=== PATIENT | male | born 1960 | race Caucasian/White ===

== ENCOUNTER 2017-03-29 14:00 | Inpatient (IN) | payer OTHER ==
--- NOTE | ~2017-03-29 | HP ---
Unit #: [id number] #: [id number] Patient: ULISES MACK [id number] [place] [address] [id number] I MR#: [id number] NAME: ULISES MACK ROOM: [facility] Age: 56 Sex: M Admission Date: 03/29/2017 : 1960 Attending Physician: Marita Cottrell M.D. Admitting Physician: Marita Cottrell M.D. Primary Care Physician: Primary Care Physician No HISTORY AND PHYSICAL HISTORY OF PRESENT ILLNESS Ulises is a 56 year old admitted to [facility] because of his abuse of alcohol. He is detoxing. PAST MEDICAL HISTORY 1. Long history of alcohol abuse. 2. Hyperlipidemia. PAST SURGICAL HISTORY Nothing reported. ALLERGIES No known drug allergies. SOCIAL HISTORY Smokes 1/2 pack per day. Drinks fifth of vodka on a daily basis. Denies illicit drug use, although UDS was positive for benzodiazepines in the emergency room. FAMILY HISTORY Medically noncontributory. REVIEW OF SYSTEMS He does not answer all questions appropriately. He does report nausea, sweats and shakes. CURRENT MEDICATIONS 1. Detox protocol. 2. Lipitor 20 mg daily. PHYSICAL EXAMINATION GENERAL: Alert, well-nourished, in no apparent distress. VITAL SIGNS: Blood pressure 132/84, heart rate 100, respirations 16, temperature 98.6. SKIN: Warm and dry without rash or lesion. HEENT: Normocephalic. TMs not viewed. Oral and nasal passages clear. Conjunctivae clear. PERRLA. EOMs intact. NECK: Supple without lymphadenopathy or thyromegaly. HEART: Regular rate and rhythm without murmur. LUNGS: Clear. ABDOMEN: Soft, nontender. : Not done. EXTREMITIES: No evidence of cyanosis, clubbing or edema. Moves all Unit #: [id number] #: [id number] Patient: ULISES MACK without focal deficit. NEUROLOGICAL: Unable to complete extended exam. He does move all extremities without focal deficit. 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 IMPRESSION Psychiatric admission. RECOMMENDATIONS PSYCHIATRIC: Per psychiatrist. MEDICAL: See no contraindication to participate in facility's activities. MEDICAL PROGNOSIS Good. MEDICAL CONDITION Stable. Dictated by... Lena Quinn P.A.-C. for Fe Alavrez/kristan TD: 03/30/2017 18:04 JOB #: [id number] HISTORY AND PHYSICAL Page 1 of 1 X Lena Quinn X HISTORY AND PHYSICAL
--- NOTE | ~2017-03-29 | PN ---
Unit #: [id number] #: [id number] Patient: ULISES HELLER [id number] [facility] [address] [place] [address] [id number] MR#: [id number] NAME: ULISES HELLER ROOM: [facility] Age: 56 Sex: M Admission Date: 03/29/2017 : 1960 Attending Physician: Marita Cottrell M.D. Admitting Physician: Marita Cottrell M.D. Primary Care Physician: Primary Care Physician Reyna KC PROGRESS NOTES DATE March 31, 2017 DISCUSSION Mr. Heller is a 56-year-old white male, who was seen today and chart was reviewed and the case was discussed with the staff. He appears to be doing somewhat better than yesterday and appears to be coming out of the detox but still has been having some persistent detox symptoms, but he has been maintaining a positive attitude about his treatment. MENTAL STATUS EXAMINATION Middle-aged white male, who was casually dressed with fair personal hygiene and appears to be in no acute distress or discomfort. He was awake and alert on interaction with intact orientation. His mood is anxious with a congruent affect. He denies any suicidal or homicidal ideations. His insight and judgment remain slightly impaired. TREATMENT PLAN 1. We will continue him on his current medications and treatment protocol, and will monitor his response to the medications, and make further adjustments as needed. 2. We will continue to followup. Dictated by... Fe Fortune/ted TD: 04/02/2017 12:02 JOB #: [id number] Unit #: [id number] #: [id number] Patient: ULISES HELLER PROGRESS NOTES Page 1 of 1 X Marita Cottrell MD PROGRESS NOTE
--- NOTE | ~2017-03-29 | PN ---
Unit #: [id number] #: [id number] Patient: ULISES HELLER [id number] [facility] [address] [place] [address] [id number] I MR#: [id number] NAME: ULISES HELLER ROOM: [facility] Age: 56 Sex: M Admission Date: 03/29/2017 : 1960 Attending Physician: Marita Cottrell M.D. Admitting Physician: Marita Cottrell M.D. Primary Care Physician: Primary Care Physician Reyna BARAHONA NOTES DATE OF SERVICE 03/30/2017 DISCUSSION Mr. Heller is a 56-year-old white male with alcohol dependence who was seen today. Chart was reviewed and case was discussed with the staff. He was lying in his bed and was seen to be unkempt, disheveled, anxious, and withdrawn in acute distress and discomfort and was shaking and was tremulous with slurred speech and appeared to be not feeling very well. Meanwhile, he has not shown any agitation or aggression. MENTAL STATUS EXAMINATION Middle-aged white male who is casually dressed with marginal personal hygiene, appears to be in slight distress or discomfort. The patient was awake and alert with impaired attention and concentration. His mood is anxious with congruent affect. His speech is slow and restricted in content. He denies any suicidal or homicidal ideations. His insight and judgment remain slightly impaired. TREATMENT PLAN 1. We will continue him on his current medications and treatment protocol. We will monitor his response to the medications and make further adjustments as needed. 2. We will continue to follow up. Dictated by... Fe Fortune/jazmin TD: 03/30/2017 11:16 JOB #: [id number] Unit #: [id number] #: [id number] Patient: ULISES HELLER PROGRESS NOTES Page 1 of 1 X Marita Cottrell MD PROGRESS NOTE
--- NOTE | ~2017-03-29 | PA ---
Unit #: [id number] #: [id number] Patient: ULISES MACK [id number] [facility] [address] [place] [address] [id number] MR#: [id number] NAME: ULISES MACK ROOM: P184 Age: 56 Sex: M Admission Date: 03/29/2017 : 1960 Date of Assessment: 03/29/2017 Attending Physician: Marita Cottrell M.D. Admitting Physician: Marita Cottrell M.D. Primary Care Physician: Primary Care Physician No PSYCHIATRIC ASSESSMENT DATE OF SERVICE 03/29/2017 IDENTIFYING DATA Mr. Mack is a 56-year-old single white male, who is a resident of [place], [place], and was transferred to us from [facility] where he was taken accompanied by his girlfriend. CHIEF COMPLAINT "My issues with alcohol." HISTORY OF PRESENT ILLNESS Mr. Mack is a 56-year-old white male with a history of alcohol dependence and mood disorder, who was taken to the hospital emergency room with a blood alcohol level of 0.025 and reports that he has been having issues with alcohol and that he woke up this morning with severe shake and could not keep his balance and last night he began to hallucinate after drinking and he drank two fifths of vodka and stated that he is not feeling well and knowing that he needed to come to the hospital to get some help and reports an extensive history of drinking and he was clean for approximately 1 year and began drinking again daily approximately 2 weeks ago and reports that the baseline of his current drinking is the mere fact that he just broke up with his girlfriend for a year and that this was a hard breakup for him and he also stated that he continues to grieve the loss of his , who in 2002 of leukemia. He reports that his son and all going through somethings that are also taking a toll and so he began drinking again as a means to self-medicate, and since then, he has been on a binge drinking episode and has been drinking two fifths of vodka on a daily basis and does report increasing depression, anxiety, irritability, restlessness, feelings of hopelessness and helplessness, but denies any current suicidal ideations, intent, or plan, and as such, recommendation for an inpatient level of care for safety and stabilization was made. The patient was stepped up to the inpatient unit. SUBSTANCE ABUSE HISTORY The patient reports a history of alcohol dependence stating that he has been drinking since he was 15 years old and currently has been drinking two-fifths of vodka a day and has been experimenting with benzodiazepine as well and did indeed test positive for benzodiazepine in the emergency room, though he reports alcohol to be his drug of choice. PAST PSYCHIATRIC HISTORY The patient has had a history of inpatient chemical dependency psychiatric Unit #: [id number] #: [id number] Patient: ULISES MACK treatment at [facility], at [facility], and various other locations. Review of the medical records indicates that currently he is not active in any treatment program and is not seeing a psychiatrist. PAST MEDICAL HISTORY Dyslipidemia and herpes. ALLERGIES No known medication allergies. PERSONAL AND SOCIAL HISTORY A 56-year-old white male, who reports that he is single and lives at home with his girlfriend and has fairly decent social support system. MENTAL STATUS EXAMINATION A middle-aged white male, who was casually dressed with a fair personal hygiene and appears to be in no acute distress or discomfort. He was awake and alert on interaction with intact orientation to time, place, and person. His mood was anxious and depressed with a congruent affect. His speech is slow and goal directed. He reports having suicidal ideations, but denies any homicidal ideations, and also denies any auditory or visual hallucinations. His insight and judgment remain significantly impaired. DIAGNOSTIC IMPRESSION Psychiatric: Alcohol dependence, moderate and acute withdrawals. Alcohol-induced mood disorder. Medical: Herpes. Stressors: Moderate psychosocial stressors. TREATMENT PLAN 1. The patient has presented with a history of substance abuse and mood disorder and has been decompensating and will need inpatient hospitalization for detoxification, safety, and stabilization. We will start him back on his home medications. We will adjust the medications and monitor response. 2. Supportive therapy was provided to the patient. 3. Safe, structured, and nourishing environment will be provided. ESTIMATED LENGTH OF STAY 5 to 7 days. ABILITY TO HELP SELF Limited. WILLINGNESS TO HELP SELF The patient appears to be willing to help self. STRENGTHS 1. Communicative. 2. Cooperative. PROBLEMS 1. Chronic dysphoric symptoms. 2. Chronic chemical dependency. 3. Poor social support system. Unit #: [id number] #: [id number] Patient: ULISES MACK DISCHARGE CRITERIA This will be contingent upon the patient's ability to show resolution of his depression and anxiety, and his ability to stay safe to himself and stay sober, particularly after discharge from the hospital. Dictated by... Fe Fortune/anthony TD: 03/31/2017 01:11 JOB #: [id number] PSYCHIATRIC ASSESSMENT Page 1 of 1 X Marita Cottrell MD X PSYCHIATRIC ASSESSMENT
--- NOTE | ~2017-03-29 | DS ---
Unit #: [id number] #: [id number] Patient: ULISES MACK [id number] [facility] [address] [place] [address] [id number] MR#: [id number] NAME: ULISES MACK ROOM: [facility] Age: 56 Sex: M Admission Date: 03/29/2017 : 1960 Discharge Date: 04/01/2017 Attending Physician: Marita Cottrell M.D. Primary Care Physician: Primary Care Physician No DISCHARGE SUMMARY IDENTIFYING DATA Mr. Mack is a 56-year-old white male, who was self-referred to the hospital. DISCHARGE DIAGNOSES Psychiatric: Alcohol dependence, moderate, in acute withdrawals and alcohol-induced mood disorder. Medical: Dyslipidemia. Stressors: Mild psychosocial stressors. HISTORY OF PRESENT ILLNESS Please see initial psychiatric evaluation for details. PAST PSYCHIATRIC HISTORY Please see initial psychiatric evaluation for details. PAST MEDICAL HISTORY Please see initial psychiatric evaluation for details. HOSPITAL COURSE The patient was admitted to the adult chemical dependency unit [facility] and was oriented to the hospital environment. Routine p.r.n. medications were initiated, and he was started on alcohol detox protocol and was closely monitored. 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 DISCHARGE MEDICATIONS None. DISCHARGE CONDITION Stable. PROGNOSIS Fair. Dictated by... Unit #: [id number] #: [id number] Patient: ULISES MACK Fe Fortune/ignaciol TD: 04/01/2017 12:22 JOB #: [id number] DISCHARGE SUMMARY Page 1 of 1 X Marita Cottrell MD DISCHARGE SUMMARY
== END 2017-04-01 09:40 | disposition home or self-care (01) | DRG 897 ==
LOC: P1E 17:45
PROC: HZ2ZZZZ Detoxification Services for Substance Abuse Treatment (ICD-10-PCS; principal; 2017-03-29)
DX: F10.230 Alcohol dependence with withdrawal, uncomplicated (principal); R45.851 Suicidal ideations; F10.24 Alcohol dependence with alcohol-induced mood disorder; B00.9 Herpesviral infection, unspecified; E78.5 Hyperlipidemia, unspecified; F17.210 Nicotine dependence, cigarettes, uncomplicated
CPT/HCPCS: 86592